=== PATIENT | female | born 1975 | race African-American/Black ===

== ENCOUNTER 2019-07-14 10:58 | Emergency (ER) | payer MEDICAID ==
[~2019-07-14] VITALS: Ht 157.5 cm; Wt 73.0 kg
[2019-07-14 14:05] LABS: BASOPHILS % 0.9 % (0.0-2.0); EOSINOPHILS % 1.1 % (0.0-5.0); HEMATOCRIT. 38.9 % (36.0-48.0); HEMOGLOBIN. 13.3 g/dL (12.0-16.0); LYMPHOCYTES % 32.8 % (20.0-50.0); MEAN CORPUSCULAR HEMOGLOBIN 32.9 pg (28.0-32.0); MEAN PLATELET VOLUME 8.8 fl (7.4-10.4); MONOCYTES % 5.8 % (2.0-8.0); NEUTROPHILS % 59.4 % (40.0-76.0); PLATELET 356 x1000/uL (130-400); RED BLOOD CELL COUNT 4.05 mill/uL (4.2-5.4); RED CELL DISTRIBUTION WIDTH 14.3 % (11.6-14.6)
[2019-07-14 14:08] LABS: CLARITY URINE CLEAR (CLEAR); COLOR URINE YELLOW (YELLOW); KETONES URINE NEGATIVE (NEGATIVE); LEUKOCYTE ESTERASE URINE NEGATIVE (NEGATIVE); NITRITE URINE NEGATIVE (NEGATIVE); OCCULT BLOOD URINE 3+ (NEGATIVE); PH URINE 5.5 (4.5-8.0); PROTEIN URINE NEGATIVE (NEGATIVE); UROBILINOGEN URINE 0.2 E.U./dL (0.2-1.0)
[2019-07-14 14:09] LABS: INR 0.9
[2019-07-14 14:11] LABS: CHLORIDE 108 mEq/L (98-107)
[2019-07-14 14:19] LABS: HCG SCREEN NEGATIVE
[2019-07-14 15:29] VITALS: BP 129/75
[2019-07-14] MEDS ORDERED: MEDR10TA MT (16:39)
== END 2019-07-14 17:29 | disposition home or self-care (01) ==
LOC: ER 13:05
DX: N93.9 Abnormal uterine and vaginal bleeding, unspecified (principal); R10.9 Unspecified abdominal pain
CPT/HCPCS: 36415; 80053; 81003; 84703; 85025; 86850; 86900; 99283